=== PATIENT | female | born 1995 | race Caucasian/White ===

== ENCOUNTER → 2017-06-19 | Outpatient (CLI) | payer OTHER | LOC: LAB SHORT 09:55 | DX: J06.9 Acute upper respiratory infection, unspecified (principal) | CPT/HCPCS: 87070 ==

== ENCOUNTER → 2018-02-07 | Outpatient (CLI) | payer OTHER | END | disposition home or self-care (01) | LOC: LAB EV 09:51 → LAB SHORT 09:51 | DX: N39.0 Urinary tract infection, site not specified (principal) | CPT/HCPCS: 87077; 87086; 87186 ==

== ENCOUNTER → 2019-12-25 | Outpatient (CLI) | payer BC | END | disposition home or self-care (01) | LOC: LAB SHORT 17:03 → LAB 17:03 | PROVIDERS: Advanced Practice Midwife | DX: Z01.419 Encounter for gynecological examination (general) (routine) without abnormal findings (principal) | CPT/HCPCS: G0123 ==

== ENCOUNTER 2020-05-16 00:08 | Emergency (ER) | payer OTHER ==
[~2020-05-16] VITALS: Ht 172.7 cm; Wt 90.7 kg
[2020-05-16] MEDS ORDERED: Cleocin HCl300 MG PO (01:27)
== END 2020-05-16 01:45 | disposition home or self-care (01) ==
LOC: ER 00:08
DX: L02.31 Cutaneous abscess of buttock (principal); Z88.0 Allergy status to penicillin
CPT/HCPCS: 10060; 99283-25; A9270

== ENCOUNTER → 2021-08-17 | Outpatient (CLI) | payer OTHER ==
[~2021-08-17] MED LIST: Cleocin HCl300 MG PO
== END ==
LOC: LAB SHORT 11:40
DX: O02.81 Inappropriate change in quantitative human chorionic gonadotropin (hCG) in early pregnancy (principal)
CPT/HCPCS: 84702

== ENCOUNTER → 2022-07-23 | Outpatient (CLI) | payer BC ==
[2022-07-23 12:58] LABS: Source, Urine Voided
[2022-07-23 15:42] LABS: Appearance, Urine Hazy (Clear); Bilirubin, Urine Neg (Neg); Blood, Urine 1+ (Neg); Color, Urine Yellow (P-Yellow); Glucose Qualitative, Urine Neg (Neg); Ketones, Urine 1+ (Neg); Leukocyte Esterase, Urine Neg (Neg); Nitrite, Urine Neg (Neg); Protein, Urine 1+ (Neg); Urobilinogen, Urine NORM (Normal); pH, Urine 6.5 (5.0-8.0)
[2022-07-23 16:00] LABS: Bacteria Many /hpf; Calcium Oxalate Crystals Mod /hpf; Red Blood Cells, Urine 0-2 /hpf (0-2); Squamous Epithelial Cells Few /hpf (Few); White Blood Cells, Urine 0-2 /hpf (0-5)
== END | disposition home or self-care (01) ==
LOC: LAB SHORT 10:44 → LAB 10:44
PROVIDERS: Advanced Practice Midwife
DX: R82.90 Unspecified abnormal findings in urine (principal)
CPT/HCPCS: 81001; 87086

== ENCOUNTER → 2022-08-06 | Outpatient (CLI) | payer BC | END | disposition home or self-care (01) | LOC: RAD SHORT 11:21 | DX: O09.93 Supervision of high risk pregnancy, unspecified, third trimester (principal) | CPT/HCPCS: 87081; 87150 ==

== ENCOUNTER 2022-08-24 06:51 | Inpatient (IN) | payer BC ==
[~2022-08-24] VITALS: Ht 172.7 cm; Wt 109.0 kg
[2022-08-24 08:23] LABS: BASOPHILS ABSOLUTE AUTO 0.03 K/mm3 (0.00-0.23); BASOPHILS PERCENT AUTO 0 % (0-2); EOSINOPHILS ABSOLUTE AUTO 0.04 K/mm3 (0.00-0.68); EOSINOPHILS PERCENT AUTO 0 % (0-6); Hematocrit 35.5 % (33.0-51.0); Hemoglobin 12.4 g/dL (11.5-16.0); IMMATURE GRAN ABSOLUTE AUTO 0.04 K/mm3 (0.00-0.10); IMMATURE GRAN PERCENT AUTO 0 % (0-1); LYMPHOCYTES ABSOLUTE AUTO 2.88 K/mm3 (0.84-5.20); LYMPHOCYTES PERCENT AUTO 29 % (21-46); MONOCYTES ABSOLUTE AUTO 0.79 K/mm3 (0.16-1.47); MONOCYTES PERCENT AUTO 8 % (4-13); Mean Corpuscular HGB 33.5 pg (26.0-34.0); Mean Corpuscular HGB Conc 34.9 g/dL (31.5-36.5); Mean Corpuscular Volume 96 fL (80-100); Mean Platelet Volume 10.5 fL (9.1-12.4); NEUTROPHILS ABSOLUTE AUTO 6.19 K/mm3 (1.96-9.15); NEUTROPHILS PERCENT AUTO 62 % (41-73); Platelet Count 159 K/mm3 (150-400); RDW Coefficient Variation 12.4 % (11.7-14.2); RDW Standard Deviation 42.8 fL (35.1-46.3); White Blood Cell Count 9.97 K/mm3 (4.00-11.30)
--- NOTE | 2022-08-25 15:04 | NUR ---
Printed d/c instructions reviewed by pt. Questions answered to her satisfaction. Denies additional questions/concerns. Going to breastfeed then will call for matching bands and discharge.
== END 2022-08-25 15:35 | disposition home or self-care (01) | DRG 807 ==
LOC: OBS 06:51 → BC 06:59
PROVIDERS: Nurse Practitioner Obstetrics & Gynecology; ADMIT Advanced Practice Midwife
PROC: 10E0XZZ Delivery of Products of Conception, External Approach (ICD-10-PCS; principal; 2022-08-24)
PROC: 0KQM0ZZ Repair Perineum Muscle, Open Approach (ICD-10-PCS; 2022-08-24)
PROC: 10907ZC Drainage of Amniotic Fluid, Therapeutic from Products of Conception, Via Natural or Artificial Opening (ICD-10-PCS; 2022-08-24)
PROC: 3E0R3BZ Introduction of Anesthetic Agent into Spinal Canal, Percutaneous Approach (ICD-10-PCS; 2022-08-24)
PROC: 00HU33Z Insertion of Infusion Device into Spinal Canal, Percutaneous Approach (ICD-10-PCS; 2022-08-24)
DX: O77.0 Labor and delivery complicated by meconium in amniotic fluid (principal); Z37.0 Single live birth; O69.1XX0 Labor and delivery complicated by cord around neck, with compression, not applicable or unspecified; O70.1 Second degree perineal laceration during delivery; Z3A.39 39 weeks gestation of pregnancy; Z98.890 Other specified postprocedural states; Z88.0 Allergy status to penicillin; Z88.8 Allergy status to other drugs, medicaments and biological substances; Z79.2 Long term (current) use of antibiotics
CPT/HCPCS: 36415; 85025; 86850; 86900; 86901; A9270; J1885; J2210; J2405; J2590; J3010; J7120

== ENCOUNTER → 2023-04-21 | Outpatient (CLI) | payer BC | LOC: LAB SHORT 13:28 → LAB 13:28 | PROVIDERS: Advanced Practice Midwife | DX: Z01.419 Encounter for gynecological examination (general) (routine) without abnormal findings (principal) | CPT/HCPCS: G0123 ==

== ENCOUNTER 2023-11-03 11:52 | Inpatient (IN) | payer BC ==
[2023-11-03] VITALS (20 sets, daily range): BP systolic 93–128; BP diastolic 52–73
[~2023-11-03] VITALS: Ht 172.7 cm; Wt 104.3 kg
[2023-11-03] MEDS ORDERED: ePHEDrine Sulfate 50 MG/ML 1ML Injection XX PRN (12:10)
[2023-11-03] MEDS ORDERED: Lactated Ringer's 1,000 ML IV PRN (12:10)
[2023-11-03] MEDS ORDERED: Lidocaine HCl 1% 30 ML SDV XX SCH (12:10)
[2023-11-03] MEDS ORDERED: Misoprostol 200 MCG Tab PR SCH (12:10)
[2023-11-03] MEDS ORDERED: FentaNYL 2mcg/ml-Bup 0.1% Epd 250 ML EPI PRN (12:10)
[2023-11-03] MEDS ORDERED: Lactated Ringer's 1,000 ML IV SCH ×4 (12:10→18:25)
[2023-11-03] MEDS ORDERED: Castor Oil 59.146 ML BTL TOP SCH (12:10)
[2023-11-03] MEDS ORDERED: Bupivacaine HCl 2.5 MG/ML 10ML P/F Injection XX SCH (12:10)
[2023-11-03] MEDS ORDERED: Bupivacaine 0.5% HCl 5 MG/ML 30MLVIAL XX SCH (12:10)
[2023-11-03] MEDS ORDERED: LR Oxytocin 20 Units 1,000 ML IV SCH ×3 (12:10→18:25)
[2023-11-03] MEDS ORDERED: Methylergonovine Maleate 0.2MG / ML 1ML Amp IM SCH (12:10)
[2023-11-03] MEDS ORDERED: Oxytocin 10 Unit / ML Vial IM SCH (12:10)
[2023-11-03] MEDS ORDERED: LR Oxytocin 20 Units 1,000 ML IV ONE (12:12)
[2023-11-03 12:25] LABS: BASOPHILS ABSOLUTE AUTO 0.02 K/mm3 (0.00-0.23); BASOPHILS PERCENT AUTO 0 % (0-2); EOSINOPHILS ABSOLUTE AUTO 0.01 K/mm3 (0.00-0.68); EOSINOPHILS PERCENT AUTO 0 % (0-6); Hematocrit 39.7 % (33.0-51.0); IMMATURE GRAN ABSOLUTE AUTO 0.03 K/mm3 (0.00-0.10); IMMATURE GRAN PERCENT AUTO 0 % (0-1); LYMPHOCYTES ABSOLUTE AUTO 2.73 K/mm3 (0.84-5.20); LYMPHOCYTES PERCENT AUTO 35 % (21-46); MONOCYTES ABSOLUTE AUTO 0.43 K/mm3 (0.16-1.47); MONOCYTES PERCENT AUTO 6 % (4-13); Mean Corpuscular HGB 33.7 pg (26.0-34.0); Mean Corpuscular HGB Conc 35.3 g/dL (31.5-36.5); Mean Corpuscular Volume 96 fL (80-100); Mean Platelet Volume 10.3 fL (9.1-12.4); NEUTROPHILS ABSOLUTE AUTO 4.51 K/mm3 (1.96-9.15); NEUTROPHILS PERCENT AUTO 58 % (41-73); Platelet Count 140 K/mm3 (150-400); RDW Coefficient Variation 12.9 % (11.7-14.2); RDW Standard Deviation 44.7 fL (35.1-46.3); Red Blood Cell Count 4.15 M/mm3 (3.80-5.20); White Blood Cell Count 7.73 K/mm3 (4.00-11.30)
[2023-11-03] MEDS ORDERED: PRENATAL TABLE1 EAC2 PO (12:33)
[2023-11-03] MEDS ORDERED: Acetaminophen 325 MG TABLET PO PRN ×2 (12:35→18:20)
[2023-11-03] MEDS ORDERED: FentaNYL Citrate 50 MCG/ML 2 ML Injection IV PRN ×2 (12:35→16:20)
[2023-11-03] MEDS ORDERED: Ondansetron HCl 2 MG / ML 2ML Vial IV PRN (12:35)
[2023-11-03] MEDS ORDERED: Calcium Carbonate 500 MG Tab Chew PO PRN (12:35)
[2023-11-03] MEDS ORDERED: Bupivacaine HCl 0.25% 30 ML Injection EPI ONE (15:25)
[2023-11-03] MEDS ORDERED: Ibuprofen 400 MG Tab PO PRN (18:15)
[2023-11-03] MEDS ORDERED: Benzocaine Topical Anesthetic Spray 60GM TOP PRN (18:20)
[2023-11-03] MEDS ORDERED: Docusate Sodium 100 MG Cap PO PRN (18:20)
[2023-11-03] MEDS ORDERED: Misoprostol 200 MCG Tab PR PRN (18:20)
[2023-11-03] MEDS ORDERED: Witch Hazel/Glycerin PADS TOP PRN (18:20)
[2023-11-03] MEDS ORDERED: Methylergonovine Maleate 0.2MG / ML 1ML Amp IM PRN (18:20)
[2023-11-03] MEDS ORDERED: Ketorolac Tromethamine 30mg Vial IV PRN (18:50)
[2023-11-03 22:21] LABS: BASOPHILS ABSOLUTE AUTO 0.04 K/mm3 (0.00-0.23); BASOPHILS PERCENT AUTO 0 % (0-2); EOSINOPHILS PERCENT AUTO 0 % (0-6); Hematocrit 34.2 % (33.0-51.0); Hemoglobin 11.5 g/dL (11.5-16.0); IMMATURE GRAN ABSOLUTE AUTO 0.07 K/mm3 (0.00-0.10); IMMATURE GRAN PERCENT AUTO 0 % (0-1); LYMPHOCYTES PERCENT AUTO 16 % (21-46); MONOCYTES ABSOLUTE AUTO 1.19 K/mm3 (0.16-1.47); MONOCYTES PERCENT AUTO 7 % (4-13); Mean Corpuscular HGB Conc 33.6 g/dL (31.5-36.5); Mean Corpuscular Volume 98 fL (80-100); Mean Platelet Volume 10.4 fL (9.1-12.4); NEUTROPHILS ABSOLUTE AUTO 12.11 K/mm3 (1.96-9.15); NEUTROPHILS PERCENT AUTO 76 % (41-73); Platelet Count 145 K/mm3 (150-400); RDW Standard Deviation 46.5 fL (35.1-46.3); Red Blood Cell Count 3.48 M/mm3 (3.80-5.20); White Blood Cell Count 16.01 K/mm3 (4.00-11.30)
[2023-11-03 23:04] LABS: International Normalized Ratio 0.97; Prothrombin Time Results 10.4 Sec (9.7-11.5)
--- NOTE | 2023-11-03 23:35 | NUR ---
PT RANG CALL [facility] AT 2008 AND STATED "I FELT A BIG GUSH". BOOKSTORE CLERK IN ROOM AND FUNDAL MASSAGE DONE - FUNDUS FIRM, ABOVE UMBILICUS AND MULTIPLE LARGE CLOTS EXPRESSED. BOOKSTORE CLERK CALLED RESEARCH ATTORNEYRIOS ADAM FOR ASSISTANCE. CONTINUOUS FUNDAL MASSAGE DONE BY BOOKSTORE CLERK UNTIL NO LONGER EXPRESSING CLOTS. FUNDUS FIRM AT UMBILICUS. CYTOTEC ADMINISTERED PER EMAR. VS CYCLING Q15MIN. PADS WEIGHED FOR 1315ML. NEXT FUNDAL CHECK EXPRESSED 180ML OF CLOTS AND SMALL TRICKLE OF DARK BLOOD. FUNDUS REMAINED FIRM. FOLLOWING FUNDAL EXPRESSED 93ML OF CLOTS AND SMALL BLEEDING. PT REPORTS FEELING WELL. PT DENIES URGE TO VOID AT THIS TIME. BOOKSTORE CLERK ENCOURAGED AND ASSISTED WITH SAME. NO CLOTS AND SCANT BLEEDING EXPRESSED WITH FUNDAL CHECK AFTER . BOOKSTORE CLERK ASSISTED PT UP TO WASHROOM WITH ANOTHER NURSE. PT VOIDED AND REPORTED FEELING LIKE SHE EMPTIED HER BLADDER. PT SHOWERED INDEPENDENTLY WHILE BOOKSTORE CLERK CHANGED BED LINENS. PT AMBULATED BACK TO BED AND TOLERATED AMBULATION/CARE WELL. BOOKSTORE CLERK CALLED Jean SIDDIQI CNM AT 2150 TO UPDATE REGARDING PPH AND PT STATUS. ORDERS RECEIVED FOR CBC AND COAG LABS STAT AND REPEAT CBC IN AM. PLAN TO MONITOR QBL AND VS OVERNIGHT, ADDITIONAL UTEROTONICS AVAILABLE PRN PER EMAR.
[2023-11-04] VITALS (8 sets, daily range): BP systolic 94–109; BP diastolic 53–62
[2023-11-04 07:40] LABS: BASOPHILS ABSOLUTE AUTO 0.05 K/mm3 (0.00-0.23); BASOPHILS PERCENT AUTO 0 % (0-2); EOSINOPHILS ABSOLUTE AUTO 0.05 K/mm3 (0.00-0.68); EOSINOPHILS PERCENT AUTO 0 % (0-6); Hematocrit 32.5 % (33.0-51.0); Hemoglobin 10.9 g/dL (11.5-16.0); Mean Corpuscular HGB 33.2 pg (26.0-34.0); Mean Corpuscular HGB Conc 33.5 g/dL (31.5-36.5); Mean Corpuscular Volume 99 fL (80-100); Mean Platelet Volume 10.1 fL (9.1-12.4); Platelet Count 151 K/mm3 (150-400); RDW Coefficient Variation 13.1 % (11.7-14.2); RDW Standard Deviation 46.6 fL (35.1-46.3); Red Blood Cell Count 3.28 M/mm3 (3.80-5.20); White Blood Cell Count 14.22 K/mm3 (4.00-11.30)
[2023-11-04 07:42] LABS: IMMATURE GRAN ABSOLUTE AUTO 0.05 K/mm3 (0.00-0.10); IMMATURE GRAN PERCENT AUTO 0 % (0-1); LYMPHOCYTES ABSOLUTE AUTO 4.23 K/mm3 (0.84-5.20); LYMPHOCYTES PERCENT AUTO 30 % (21-46); MONOCYTES PERCENT AUTO 10 % (4-13); NEUTROPHILS ABSOLUTE AUTO 8.44 K/mm3 (1.96-9.15); NEUTROPHILS PERCENT AUTO 59 % (41-73)
[2023-11-04] MEDS ORDERED: Prenatal Vit/FE Fumarate/FA 1 Tab PO SCH (09:00)
== END 2023-11-04 17:55 | disposition home or self-care (01) | DRG 807 ==
LOC: OBS 11:52 → BC 12:06
PROVIDERS: ADMIT Advanced Practice Midwife
PROC: 10E0XZZ Delivery of Products of Conception, External Approach (ICD-10-PCS; principal; 2023-11-03)
PROC: 0KQM0ZZ Repair Perineum Muscle, Open Approach (ICD-10-PCS; 2023-11-03)
PROC: 10907ZC Drainage of Amniotic Fluid, Therapeutic from Products of Conception, Via Natural or Artificial Opening (ICD-10-PCS; 2023-11-03)
PROC: 3E033VJ Introduction of Other Hormone into Peripheral Vein, Percutaneous Approach (ICD-10-PCS; 2023-11-03)
DX: O99.214 Obesity complicating childbirth (principal); Z37.0 Single live birth; Z3A.39 39 weeks gestation of pregnancy; Z88.0 Allergy status to penicillin; Z88.8 Allergy status to other drugs, medicaments and biological substances; O66.0 Obstructed labor due to shoulder dystocia; O70.1 Second degree perineal laceration during delivery
CPT/HCPCS: 36415; 85025; 85384; 85610; 85730; 86850; 86900; 86901; 86923; A9270; J1885; J2590; J3010; J7120

== ENCOUNTER 2024-07-14 17:15 | Emergency (ER) | payer BC ==
[~2024-07-14] VITALS: Ht 172.7 cm; Wt 83.9 kg
[~2024-07-14 17:15] MED LIST changes: +PRENATAL TABLE1 EAC2 PO
[2024-07-14 17:37] VITALS: BP 120/74
[2024-07-16 13:15] LABS: HEPATITIS B SURFACE ANTIBODY 38.49 IU/L
== END 2024-07-14 19:11 | disposition home or self-care (01) ==
LOC: ER 17:15
PROVIDERS: Physician Assistant
DX: S61.232A Puncture wound without foreign body of right middle finger without damage to nail, initial encounter (principal); W46.0XXA Contact with hypodermic needle, initial encounter; Z79.899 Other long term (current) drug therapy; Z88.0 Allergy status to penicillin; Z88.8 Allergy status to other drugs, medicaments and biological substances
CPT/HCPCS: 36415; 84460

== ENCOUNTER → 2025-01-08 | Outpatient (CLI) | payer BC ==
[2025-01-08 08:05] LABS: BASOPHILS ABSOLUTE AUTO 0.03 K/mm3 (0.00-0.23); BASOPHILS PERCENT AUTO 0 % (0-2); EOSINOPHILS ABSOLUTE AUTO 0.04 K/mm3 (0.00-0.68); EOSINOPHILS PERCENT AUTO 1 % (0-6); Hematocrit 39.1 % (33.0-51.0); Hemoglobin 13.2 g/dL (11.5-16.0); IMMATURE GRAN ABSOLUTE AUTO 0.02 K/mm3 (0.00-0.10); IMMATURE GRAN PERCENT AUTO 0 % (0-1); LYMPHOCYTES ABSOLUTE AUTO 1.75 K/mm3 (0.84-5.20); LYMPHOCYTES PERCENT AUTO 24 % (21-46); MONOCYTES ABSOLUTE AUTO 0.75 K/mm3 (0.16-1.47); MONOCYTES PERCENT AUTO 10 % (4-13); Mean Corpuscular HGB Conc 33.8 g/dL (31.5-36.5); Mean Corpuscular Volume 95 fL (80-100); NEUTROPHILS ABSOLUTE AUTO 4.75 K/mm3 (1.96-9.15); NEUTROPHILS PERCENT AUTO 65 % (41-73); NRBC ABSOLUTE 0.00 K/mm3 (0.00-0.02); NRBC Auto 0.0 /100 WBC (0.0-0.2); RDW Coefficient Variation 12.9 % (11.7-14.2); RDW Standard Deviation 44.6 fL (35.1-46.3)
[2025-01-08 08:09] LABS: Alanine Aminotransfer (ALT/SGP 25.0 U/L (12-78); Albumin, Blood 3.9 g/dL (3.4-5.0); Albumin/Globulin Ratio 1.3 (0.8-1.8); Anion Gap 13.0 mmol/L (3-11); Aspartate Aminotrans (AST/SGOT 14.0 U/L (12-37); Bilirubin, Total 0.4 mg/dL (0.1-1.0); Blood Urea Nitrogen 12.0 mg/dL (8-24); CO2, Blood 26.0 mmol/L (21-32); Calcium, Blood 9.1 mg/dL (8.5-10.1); Chloride, Blood 106.0 mmol/L (98-108); Creatinine, Blood 0.69 mg/dL (0.40-1.00); Globulin, Blood 2.9 g/dL (2.2-4.0); Glucose, Blood 104.0 mg/dL (70-99); Potassium, Blood 3.9 mmol/L (3.5-5.5); Sodium, Blood 141.0 mmol/L (136-145); Total Protein, Blood 6.8 g/dL (6.4-8.2)
[2025-01-08 08:15] LABS: Platelet Count 128 K/mm3 (150-400)
== END | disposition home or self-care (01) ==
LOC: LAB 07:50 → LAB SHORT 07:50
PROVIDERS: Physician Assistant
DX: R10.11 Right upper quadrant pain (principal); R82.81 Pyuria
CPT/HCPCS: 80053; 83690; 85025; 87086